=== PATIENT | male | born 1980 | race Caucasian/White ===

== ENCOUNTER 2016-10-18 18:54 | Emergency (ER) | payer OTHER ==
[2016-10-18 19:33] VITALS: BP 126/72; PULSE 76; RESP 18; TEMP 98.1; O2SAT 96
[2016-10-18] MEDS ORDERED: LORAZEPAM 1 MG PREPACK#4 BTL TAKEHOME ONE (19:58)
--- NOTE | 2016-10-18 20:01 | UCPHY ---
H & P Patient Type: New Chief Complaint Nursing Narrative: panic attack x 2 nights, heart racing, SOB. now feels it during the day. Time Seen by Provider: 10/18/16 19:48 HPI/ROS: CHIEF COMPLAINT: Anxiety HISTORY OF PRESENT ILLNESS: Patient is a 36-year-old man who comes to the Urgent Care complaining of panic attacks. He states that he had 1 night when he woke up and could not fall back to sleep. He feels like the room was closing in on him and the family was going to attack him. He was finally able to go back to sleep after a couple of hours. He felt okay for a few days other than slightly anxious but able to sleep. Then again on Monday night he had another attack. He cannot fall to sleep for a few hours. REVIEW OF SYSTEMS: Constitutional: denies: chills, fever, recent illness, recent injury EENTM: denies: blurred vision, double vision, nose congestion Respiratory: denies: cough, shortness of breath Cardiac: denies: chest pain, irregular heart rate, lightheadedness, palpitations Gastrointestinal/Abdominal: denies: abdominal pain, diarrhea, nausea, vomiting, blood streaked stools Genitourinary: denies: dysuria, frequency, hematuria, pain Musculoskeletal: denies: joint pain, muscle pain Skin: denies: lesions, rash, jaundice, bruising Neurological: denies: headache, numbness, paresthesia, tingling, dizziness, weakness Hematologic/Lymphatic: denies: blood clots, easy bleeding, easy bruising Immunologic/allergic: denies: HIV/AIDS, transplant EXAM: GENERAL: Well-appearing, well-nourished and in no acute distress. HEAD: Atraumatic, normocephalic. EYES: Pupils equal round and reactive to light, extraocular movements intact, sclera anicteric, conjunctiva are normal. ENT: TMs normal, nares patent, oropharynx clear without exudates. Moist mucous membranes. NECK: Normal range of motion, supple without lymphadenopathy or JVD. LUNGS: Breath sounds clear to auscultation bilaterally and equal. No wheezes rales or rhonchi. HEART: Regular rate and rhythm without murmurs, rubs or gallops. ABDOMEN: Soft, nontender, normoactive bowel sounds. No guarding, no rebound. No masses appreciated. BACK: No CVA tenderness, no spinal tenderness, step-offs or deformities EXTREMITIES: Normal range of motion, no pitting or edema. No clubbing or cyanosis. NEUROLOGICAL: Cranial nerves II through XII grossly intact. Normal speech, normal gait. 5/5 strength, normal movement in all extremities, normal sensation PSYCH: Normal mood, normal affect. SKIN: Warm, dry, normal turgor, no visible rashes or lesions. Source: Patient Exam Limitations: No limitations - Personal History Current Tetanus Diphtheria and Acellular Pertussis (TDAP): Yes - Medical/Surgical History Hx Asthma: No Hx Chronic Respiratory Disease: No Hx Diabetes: No Hx Cardiac Disease: No Hx Renal Disease: No Hx Cirrhosis: No Hx Alcoholism: No Hx HIV/AIDS: No Hx Splenectomy or Spleen Trauma: No Other PMH: none - Family History Significant Family History: No pertinent family hx - Social History Smoking Status: Never smoked Alcohol Use: Sober Drug Use: None Constitutional: Initial Vital Signs Temperature (C) 36.7 C 10/18/16 19:30 Heart Rate 76 10/18/16 19:30 Respiratory Rate 18 10/18/16 19:30 Blood Pressure 126/72 H 10/18/16 19:30 O2 Sat (%) 96 10/18/16 19:30 O2 Delivery Mode Room Air Allergies/Adverse Reactions: No Known Allergies Allergy (Unverified 10/18/16 19:30) Home Medications: Medication Instructions Recorded LORazepam [Ativan 1 mg (RX)] 1 mg PO Q6-8PRN PRN #10 tab 10/18/16 Medical Decision Making ED Course/Re-evaluation: Patient is well appearing. He is concerned that he will have another anxiety attack known p.m. asleep tonight. He was able to sleep last night because he was so exhausted. He cannot think of any trigger causing his symptoms. It is never happened before. He has no history of depression and bipolar. He does not take any medications. He is not withdrawing. I offered him a p.r.n. prescription for Ativan and he has a follow-up appointment with his primary in 2 weeks. By then his pattern may be more established. Mental health referral may be appropriate as well. Differential Diagnosis: Partial list of the Differential diagnosis considered include but were not limited to; anxiety attack, panic attack, and although unlikely based on the history and physical exam, I also considered acute coronary disease, palpitations, asthma, PE, pneumonia. I discussed these differential diagnoses and the plan with the patient as well as the usual and expected course. The patient understands that the diagnosis is provisional and that in medicine we are not always correct and that further workup is often warranted. Usual and customary warnings were given. All of the patient's questions were answered. The patient was instructed to return to the emergency department should the symptoms at all worsen or return, otherwise to followup with the physician as we discussed. - Data Points Medications Given: Discontinued Medications Lorazepam (Ativan 1 Mg Prepack#4) 1 btl TAKEHOME EDNOW ONE Stop: 10/18/16 19:59 Last Admin: 10/18/16 20:01 Dose: 1 btl Departure - Departure Disposition: Home, Routine, Self-Care Clinical Impression: Anxiety attack Condition: Fair Instructions: Lorazepam (By mouth), Panic Attack (ED) Referrals: Camden Mas DO [Doctor of Osteopathy] - As per Instructions Prescriptions: LORazepam [Ativan 1 mg (RX)] 1 mg PO Q6-8PRN PRN #10 tab PRN Reason: *Anxiety/Agitation/Insomnia - PQRS PQRS Measurement: Not applicable
== END 2016-10-18 20:08 | disposition home or self-care (01) ==
LOC: CED 18:54
DX: F41.0 Panic disorder [episodic paroxysmal anxiety] (principal)
CPT/HCPCS: G0463-PO

== ENCOUNTER 2018-07-23 08:32 | Emergency (ER) | payer OTHER ==
--- NOTE | 2018-07-23 09:19 | EDPHY ---
H & P Stated Complaint: hit in neck with hockey puck 2129, playing Time Seen by Provider: 07/23/18 08:49 HPI/ROS: Chief Complaint: Neck injury HPI: 37-year-old male was struck in the anterior neck by a hockey puck while playing hockey last night. He had immediate pain in noticed a mild change in his voice. He is continuing to have a a little bit pain with speaking and pain with swallowing. No difficulty breathing. He has been able swallow all with both liquids and solids. Has not noticed any significant neck swelling. No cough. No prior injuries. ROS: 10 systems were reviewed and were negative except those elements noted in the HPI. PMH: Denies Social History: No smoking Family History: non-contributory Physical Exam: Gen: Awake, Alert, Airway Intact, thin male HEENT: Head: Atraumatic Eyes: PERRLA, EOMI Ears: No hemotympanum Nose: No epistaxis Mouth: Normal dentition, Airway patent Face: No deformity Neck: Cervical non-tender, no stepoff, Full ROM without pain, Anterior Neck: Patient has a small abrasion over his inferior thyroid cartilage. He has tenderness over the right inferior thyroid cartilage and some mild tenderness over the right cricoid cartilage. There is no significant swelling. All structures are symmetrical. There is no the deformity to the thyroid or cricoid cartilage is noted. They are stable. No noticeable voice changes or hot potato voice. No stridor. No bruits. All injuries are confined to central zone 2. Chest: non-tender, lungs CTA Heart: normal heart tones Abd: soft, non-tender, atraumatic Pelvis: non-tender, stable to AP and Lateral compression Back: atraumatic, no midline tenderness Ext: atramatic, full ROM Skin: no rash Neuro: CN II-XII intact, Strength 5/5 in all extremities, sensation intact in all extremities - Personal History Current Tetanus Diphtheria and Acellular Pertussis (TDAP): Yes - Medical/Surgical History Hx Asthma: No Hx Chronic Respiratory Disease: No Hx Diabetes: No Hx Cardiac Disease: No Hx Renal Disease: No Hx Cirrhosis: No Hx Alcoholism: No Hx HIV/AIDS: No Hx Splenectomy or Spleen Trauma: No Other PMH: denies - Social History Smoking Status: Never smoked Constitutional: Initial Vital Signs Temperature (C) 36.8 C 07/23/18 08:37 Heart Rate 71 07/23/18 08:37 Respiratory Rate 14 07/23/18 08:37 Blood Pressure 121/77 H 07/23/18 08:37 O2 Sat (%) 97 07/23/18 08:37 Allergies/Adverse Reactions: No Known Allergies Allergy (Verified 07/23/18 08:37) Home Medications: Medication Instructions Recorded LORazepam [Ativan 1 mg (RX)] 1 mg PO Q6-8PRN PRN #10 tab 10/18/16 Medical Decision Making - Diagnostics Imaging Results: Imaging Impressions Soft Tissue Neck X-Ray 07/23/18 08:55 Impression: Mild prominence of the epiglottic air shadow, without a classic "thumbprint sign." ORL consultation is suggested. If there is progression of the patient's symptoms, CT imaging could also be considered. A test result has been communicated to a licensed care provider and documented in the [employer] Critical Result system on 07/23/2018 10:13, Message ID [id number]. Imaging: Discussed imaging studies w/ buyer internship Radiologist ED Course/Re-evaluation: 29-year-old male with a zone 2 injury to the neck. No obvious injuries on x- ray with the exception of a small amount of epiglottis thickening. Injury occurred greater than 12 hr ago. He has not have any difficulty breathing. No significant edema and prevertebral space are normal. I think he would benefit from outpatient scope him by ENT but does not require hospitalization or transfer to a trauma center at this time. I have discussed with ROSETTA Atkins. She is in agreement. She will see him at her a [place] office at 1:45 a.m. This afternoon for nasopharyngeal scope. Departure - Departure Disposition: Home, Routine, Self-Care Clinical Impression: Neck contusion Condition: Good Instructions: Contusion in Adults (ED) Additional Instructions: Follow up with ENT Physician Thermometer Maker Milly at [facility] [address], [address] [place] 1:45 pm today Referrals: Lito Dubon DO [Primary Care Provider] - As per Instructions
[2018-07-23 10:35] VITALS: BP 114/71
== END 2018-07-23 10:41 | disposition home or self-care (01) ==
LOC: CED 08:32
DX: S10.93XA Contusion of unspecified part of neck, initial encounter (principal); W21.221A Struck by field hockey puck, initial encounter; Y93.22 Activity, ice hockey; Y92.9 Unspecified place or not applicable; Y99.9 Unspecified external cause status
CPT/HCPCS: 70360-PO; 99283-ER